=== PATIENT | male | born 1950 | race Caucasian/White ===

== ENCOUNTER 2024-05-02 10:27 | Outpatient (RCR) | payer MEDICARE, BC, SELFPAY ==
--- NOTE | 2024-05-02 12:09 | PT.OPEX ---
PT [facility] Outpatient Eval PT [facility] Outpatient Eval Start: 04/30/24 15:45 Freq: Status: Active Protocol: Document 05/02/24 10:32 MRS (Rec: 05/02/24 11:57 MRS Desktop) E-signed By Danica Benitez DPT Physical Therapy Outpatient Evaluation Insurance Information Recert Due Date 08/02/23 Insurance Name Medicare B Medical Diagnosis Unilateral osteoarthritis of L hip; awaiting L JELANI Treating Diagnosis L hip weakness and pain Referring MD Dr. Dc Armstrong Subjective Preferred Name Donny Langley Pt doing well and ready for surgery. Surgery is scheduled 05/18/24 but is on stand-by list for first available. Pain Comments 08/22 in L Hip, L groin, and left low back Date of Last Physician Visit 04/15/24 Date of Next Physician Visit 05/26/24 Date of Surgery (If applicable) 05/18/24 Current Work Status Retired Occupation Works as [employer] during holidays Precautions Treatment Precautions/Contraindications History of B TKA's and R shoulder surgery Therapy Limitations/Systems Review Not Limited Objective Range of Motion WNL for B UE's and R LE. L hip is WFL but limited compared to R Strength B UE's grossly 5/5; R LE 5/5; L hip flexion 4/5; L knee flex /ext: 4+/5; L DF= 4/5 Swelling none noted Balance & Gait Pt demonstrating antalgic gait pattern with L hip being source of pain mostly with SLS and initiating swing through Sensation/Reflexes Pt has history of neuropathy but able to sense light touch during testing. Assessment Assessment/Impression Pt is pleasant 73-year-old male who presents for pre-op evaluation for L JELANI. Surgery is scheduled for 05/18/24 but pt is on waitlist as he has had a significant increase in pain and would like to have surgery as soon as possible. Pt received outpatient PT treatment prior to decision to have surgery. Pt will be receiving OP PT at [facility] post op. Pt demonstrates impaired L hip strength and functional mobility with presence of pain . Pt would benefit from post- op PT treatment. Primary Functional Limitations L hip pain, L hip weakness, impaired functional mobility requiring use of AD. Plan of Care Rehabilitation Potential Good Physical Therapy Goals During this session: 1. Pt will be able to give verbal understanding of post op expectations and precautions. 2. Pt will be able to demonstrate post-op L JELANI exercises using HEP handout as a reference. Post Op Goals within 2-3 days 1. Pt will transfer independently. 2. Pt will amb 200 feet with ww independently for household and community amb. 3. Pt will ascend/descend 4 stairs independently to enter/ exit the home. 4. Pt will be independent in JELANI ex program to promote strength and mobility. Goals for safe return home. Treatment Plan/Direct Interventions Gait Training,Self-Care/Home Management,Therapeutic Activities,Therapeutic Exercises Frequency/Duration 1 times visit pre-op Patient Will Be Discharged From Therapy Completion of LTG(s),Skills Plateau,Independent w/HEP, Independently Progressing Evaluation Billing Untimed Code Treatment Minutes 30 PT Eval No Charge No Complexity Low Student Supervision Licensed PT Directed/Approved Treatment, Reviewed POC with Patient,Made Contact with Patient, Participated in Treatment Certification Information Initial Certification Date 05/02/24 Ending Certification Date 08/02/23 Provider Signature Required Yes Provider Signature Shows Agreement With POC & Medical Necessity Physician NPI Number Write NPI# Here Physician Comment/Change : Physician Signature & Date Requested Please Sign/Date Here
== END 2024-08-30 23:59 | disposition home or self-care (01) ==
PROVIDERS: Visit Provider Orthopaedic Surgery Sports Medicine
DX: M16.12 Unilateral primary osteoarthritis, left hip (principal); M25.552 Pain in left hip; R53.1 Weakness; Z51.89 Encounter for other specified aftercare
CPT/HCPCS: 97110; 97161; 97530

== ENCOUNTER 2024-05-18 05:50 | Day surgery (SDC) | payer MEDICARE, BC, SELFPAY ==
[2024-05-18] VITALS (30 sets, daily range): BP systolic 134–191; BP diastolic 59–102; PULSE 48–74; RESP 16–22; TEMP 36.3–37.4; O2SAT 94–100; BMI 35.9
--- OUTSIDE RECORDS SUMMARY | 2024-05-18 05:54 | XMS_ITS | Clinical Summary ---
Author Organization [employer] Address [place], [place] [address] Care Team Providers Care Yard Person Name Role Phone Nanci Singh Primary Care Provider Allergies No known active allergies Medications Medication Sig Dispensed Refills Start Date End Date Status lancets (Microlet Lancet) Test 3 times daily 300 Each 3 03/06/2021 Active Blood-Glucose Meter (Contour Next EZ Meter)Indications:Typ e 2 diabetes mellitus without complication, with long-term current use of insulin (HC) Dispense meter covered by pt ins. 1 Kit 01/01/2022 Active blood sugar diagnostic (Contour Next Test Strips) stripIndications:Type 2 diabetes mellitus without complication, with long-term current use of insulin (HC) Test 3 times daily. 300 Each 3 01/01/2022 Active losartan (COZAAR) 100 mg tabletIndications:Ess ential hypertension Take 1 Tablet (100 mg) by mouth once daily. 90 Tablet 3 02/04/2023 Active sildenafil citrate (VIAGRA) 100 mg tabletIndications:Ere ctile dysfunction, unspecified erectile dysfunction type Take one-half tablets (50 mg) by mouth once daily if needed for Erectile Dysfunction. Take 30min to 4 hours before sexual activity. Max 100mg/24hr. 20 Tablet 2 02/04/2023 Active amLODIPine (NORVASC) 10 mg tabletIndications:Ess ential hypertension Take 1 Tablet (10 mg) by mouth once daily. 90 Tablet 3 02/04/2023 Active ketoconazole 2% shampoo (NIZORAL) 2 % shampooIndications:Ti anita Apply thin layer to face, leo and eyebrows twice weekly. 120 mL 1 01/25/2024 Active atorvastatin (LIPITOR) 40 mg tabletIndications:Hyp ercholesterolemia Take 1 Tablet (40 mg) by mouth at bedtime. 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 This will not affect patient care or billing. This comment can be deleted. Colon polyp 11/19/2009 Overview (09/28/2012): Colonoscopy 11/2009 polyps repeat in 3 years Other and unspecified hyperlipidemia 09/08/2006 Gramajo's esophagus 09/08/2006 Overview (09/28/2012): EGD 09/2012 Gramajo's, repeat EGD in 3 years Unspecified essential hypertension 09/08/2006 Resolved Problems Problem Noted Date Diagnosed Date Resolved Date Anticoagulation monitoring, goal range 1.7-2.5 08/29/2013 04/15/2017 Unspecified sleep apnea 09/08/200609/14 Encounters Date Type Department Care Team Description 05/02/2024 9:00 AM SUPERVISOR ELECTROLYTIC TINNING Office Visit [facility] [address] [place] [address] Ally Valverde MD Preoperative Exam (05/18/24 left his replacement - [facility]. Dr Benjamin) 05/02/2024 Travel 04/28/2024 Travel 02/26/2024 Telephone [facility] [address] [facility] [place] [address] McLeran, Nanci Elsa, [place] Prior Authorization (evolocumab (Repatha SureClick) 140 mg/mL subcutaneous pen injector Approved No Dates Given) from Last 3 Months Immunizations Name Administration Dates Next Due Hepatitis A (Adult) 09/06/1997,01/18/1997 Hepatitis B (Adult) 01/18/1997,05/24/1996,1995 Influenza, IIV3 (Age 6-35 mos) 04/23/2011 Influenza, IIV3 (Age >=3 years) 04/23/20 11,05/02/2010,05/14/2007,2002 Pneumococcal Poly,23-Valent (Pneumovax) 08/27/2013 Td (Age >=7 Years) 04/11/1996 Tdap 12/19/2010 Family History Medical History Relation Name Comments Good Health Son Relation Name Status Comments Son Social History Tobacco Use Types Packs/Day Years Used Date Smoking Tobacco: Never Smokeless Tobacco: Never Tobacco Cessation:Counseling Given: No Alcohol Use Standard Drinks/Week Comments Yes 0 (1 standard drink = 0.6 oz pur e alcohol) once in a while PHQ-2 Answer Date Recorded PHQ-2 TOTAL SCORE 0 07/09/2020 Social Connections Answer Date Recorded Do you often feel lonely or isolated from those around you? 0 07/24/2023 Financial Resource Strain Answer Date R ecorded Difficulty of Paying Living Expenses 3 02/04/2023 Difficulty of Paying Living Expenses Not on file 02/04/2023 Food Insecurity Answer Date Recorded Do you worry your food will run out before you are able to buy more? 1 07/24/2023 Transportation Needs Answer Date Record ed Does lack of transportation keep you from medica l appointments? 1 07/24/2023 Does lack of transportation keep you from work, meetings or getting things that you need? 1 07/24/2023 Housing Stability Answer Date Recorded What is your housing situation today? 1 07/24/2023 Sex and Gender Information Value Date Recorded Sex Assigned at Not on file Gender Identity Not on file Sexual Orientation Not on file Obstetrics History Last Filed Vital Signs Vital Sign Reading Time Taken Comments Blood Pressure 145/77 05/02/2024 9:12 AM SUPERVISOR [employer] did not take BP medication today Pulse 50 05/02/2024 9:12 AM SUPERVISOR [employer]NING Temperature 36.4 C (97.6 F) 08/21/2023 12:15 PM SUPER[employer]NING Respiratory Rate 16 08/21/2023 12:1 5 PM [employer]PER[employer]OR [employer]NING Oxygen Saturation 98% 05/02/2024 9:1 2 AM SUPERVISOR [employer] TINNING Inhaled Oxygen Concentration - - Weight 95.3 kg (210 lb) 05/02/2024 9:12 AM SUPERVISOR [employer]NING Height 165.1 cm (5' 5) 08/21/2023 12:1 5 PM SUPER[employer]OR [employer]NING Body Mass Index 34.95 08/21/2023 12:15 PM SUPER[employer]OR [employer]NING Plan of Treatment Health Maintenance Due Date Last Done Comments Zoster (shingles) series for age 50+ (1 of 2) 2001 Colonoscopy through age 75 11/16/2012 11/16/2009 Pneumococcal series for age 65+ (2 of 2 - PCV) 08/27/2014 08/27/2013 Medicare Wellness for age 65+ 2016 Tetanus booster 12/19/2020 12/19/2010, 07/12/2010, 04/11/1996 Depression screening for age 12+ 07/09/2021 07/09/2020, 03/01/2018, 02/23/2017, Additional history exists BMI (ht and wt on same day) for age 18+ 09/23/2022 09/23/2021, 02/06/2021, 07/09/2020, Additional history exists COVID-19 vaccine series ( season) 2024 Influenza for age 65+ 02/14/2024 04/23/2011 , 05/02/2010, 05/14/2007, Additional history exists Fecal testing non-DNA (FIT,FOBT,iFOBT) for age 45-75 02/18/2024 02/17/2023 Lipids for age 45-75 05/02/2029 05/02/2024, 01/25/2024, 02/04/2023, Additional history exists Tdap Completed 12/19/2010 Hepatitis C screening for ag e 18-79 Completed 09/23/2021 Procedures Procedure Name Priority Date/Time Associated Diagnosis Comments LIPID PANEL Routine 05/02/2024 10:13 AM SUPERVISOR [employer]ING Hypercholesterolemi a HEMOGLOBIN Routine 05/02/2024 10:13 AM SUPERVISOR [employer]NING Pre-op exam POTASSIUM Routine 05/02/2024 10:13 AM SUPERVISOR [employer]NING Pre-op exam OCCULT BLOOD IFOBT STOOL Routine 02/17/2023 11:04 AM CDT Screening for colon cancer ANTI HCV Routine 09/23/2021 9:36 AM CDT Need for hepatitis C screening test from Last 3 Months or Most Recently Relevant to Health Maintenance Results * HEMOGLOBIN (05/02/2024 10:13 AM SUPERVISOR ELECTR[employer] TINNING) HEMOGLOBIN 14.9 13.2 - 17.1 g/dL [facility] Blood BLOOD SPECIMEN / Unknown 05/02/2024 10:13 AM SUPERVISOR [employer]NING 05/02/2024 10:14 AM SUPERVISOR [employer]NING Ally Valverde MD HEMATOLOGY Performing Organization Address City/[facility]/ZIP Co de Phone Number [employer] [facility] [address] [place] [address], [place] [phone] [facility] [address] [place] [address] * POTASSIUM (05/02/2024 10:13 AM SUPERVISOR ELECTROLYTIC TINNING) [facility] POTASSIUM 4.5 3.5 - 5.3 mmol/L [facility] Blood BLOOD SPECIMEN / Unknown 05/02/2024 10:13 AM SUPERVISOR ELECTROL[employer] TINNING 05/02/2024 10:14 AM SUPERVISOR ELECTR[employer] TINNING Ally Valverde MD CHEMISTRY [employer] [facility] [address] [place] [address], [place] [phone] [facility] [address] [place] [address] * (ABNORMAL) LIPID PANEL (05/02/2024 10:13 AM SUPERVISOR ELECTROLYTIC TINNING) CHOLESTEROL, TOTAL 297(H) <200 mg/dL [facility] HDL CHOLESTEROL 42 > OR = 40 mg/dL [employer] [facility] TRIGLYCERIDES 181(H) <150 mg/dL [employer] [facility] LDL-CHOLESTEROL 220(H) mg/dL (calc) [facility] Comment: LDL-C levels > or = 190 mg/dL may indicate familial hypercholesterolemia (FH). Clinical assessment and measurement of blood lipid levels should be considered for all first degree relatives of patients with an FH diagnosis. LDL Cholesterol (LDL-C) levels > or = 300 mg/dL may indicate homozygous familial hypercholesterolemia (HoFH). Untreated, these extremely high LDL-C levels can result in premature CV events and mortality. Patients should be identified early and provided appropriate interventions to reduce the cumulative LDL-C burden from . For questions about testing for familial hypercholesterolemia, please call [employer] Services at [email or web address].GENE.INFO. Eladio Ramos, et al. J National Lipid Association Recommendations for Patient-Centered Management of Dyslipidemia: Part 1 Journal of Clinical Lipidology 2015;9(2), 129-169. Maco Rodriguez et al. (2014). Homozygous familial hypercholesterolaemia: new insights and guidance for clinicians to improve detection and clinical management. Heart Journal, 35(32), 6415-3443. Reference range: <100 Desirable range <100 mg/dL for primary prevention; <70 mg/dL for patients with CHD or diabetic patients with > or = 2 CHD risk factors. LDL-C is now calculated using the Demarco-Johnson calculation, which is a validated novel method providing better accuracy than the Friedewald equation in the estimation of LDL-C. Demarco PARNELL et al. BONI. 2013;310(19): 3283-8208 (http://education.Ecolibrium/faq/TOC150) CHOL/HDLC RATIO 7.1(H) <5.0 (calc) [facility] NON HDL CHOLESTEROL 255(H) <130 mg/dL (calc) [facility] Comment: Non-HDL level > or = 220 is very high and may indicate genetic familial hypercholesterolemia (FH). Clinical assessment and measurement of blood lipid levels should be considered for all first-degree relatives of patients with an FH diagnosis. For patients with diabetes plus 1 major ASCVD risk factor, treating to a non-HDL-C goal of <100 mg/dL (LDL-C of <70 mg/dL) is considered a therapeutic option. Blood BLOOD SPECIMEN / Unknown 05/02/2024 10:13 AM SUPERVISOR ELECTROL[employer]IC TINNING 05/02/2024 10:14 AM SUPERVISOR ELECTROLY[employer] TINNING Ally Valverde MD CHEMISTRY Performing Organization Address City/[facility] Co de Phone Number [employer] [facility] [address] [place] [address], [facility] [address] [place] [address] * OCCULT BLOOD IFOBT STOOL (02/17/2023 11:04 AM CDT) STOOL BLOOD ,IFOBT Negative Negative 02/23/2023 12:20 PM CDT [facility] Stool STOOL SPECIMEN / Unknown Non-Blood / Unknown 02/17/2023 11:04 AM CDT 02/23/2023 11:05 AM CDT [facility] Performing Organization Address [facility] de Phone Number [facility] [address] [id number], [place] [phone] * ANTI HCV (09/23/2021 9:36 AM CDT) HEPATITIS C ANTIBODY Non-React yenni Non-React yenni 09/23/2021 4:59 PM CDT [facility] Comment:Antibodies to HCV no t detected; does not exclude the possibility of exposure to HCV. Blood BLOOD SPECIMEN / Unknown Venipuncture / Unknown 09/23/2021 9:36 AM CDT 09/23/2021 9:37 AM CDT Nanci [facility] Performing Organization Address City/[facility]/ZIP Co de Phone Number [facility] [address] [place] [address], [place] from Last 3 Months or Most Recently Relevant to Health Maintenance Advance Directives Documents on File Type Date Recorded Patient Engineering Inspector Expl anation Healthcare Directive 10/05/2005 A * Full Code (Latest Code Status on File) Date Activated Date Inactivated Comments 07/24/2023 5:06 PM 07/25/2023 12:22 PM Question Answer Comments Code Status Discussion: Other * Full Code Date Activated Date Inactivated Comments 06/19/2023 4:28 PM 06/20/2023 2:00 PM Question Answer Comments Code Status Discussion: Reviewed Preferences * Full Code Date Activated Date Inactivated Comments 06/19/2023 8:58 AM 06/19/2023 4:28 PM Question Answer Comments Code Status Discussion: Unable to Assess Preferences, Provider to review later Care Teams Yard Person Relationship Specialty Start Date End Date Nanci Singh PA [address] [facility] [place] [address] PCP - General Family Practice 12/25/16
--- OUTSIDE RECORDS SUMMARY | 2024-05-18 05:54 | XMS_ITS | Data Portability ---
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 Plan of Treatment Reminders Order Date Submit Date Provider Last Modified By Organization Details Last Modified Time Details Appointments None recorded. Lab PSA, total, serum or plasma 2023 [address] [facility], [address], [place], [address], 4 05:49:49 PSA, total, serum or plasma 2023 024 [facility], [address], [address], [place], [address], 4 14:00:08 PSA, total, serum or plasma 2023 024 [facility], [address], [address], [place], [address], 4 14:04:56 Referral pelvic floor therapy referral - Please call patient to schedule Pelvic Floor Physical Therapy. Thank you 2023 024 [email or web address] [facility], [address], [address], [place], [address], 10:35:30 Procedures None recorded. Surgeries None recorded. Imaging None recorded. Medication Orders sildenafil (pulmonary hypertensio n) 20 mg tablet 2023 024 [facility], [place], [place], [address] [place], [address], 11:52:41 Patient TargetsNo targets recorded. Patient Instructions Encounter Date Encounter Id Patient Instructions Last Modified By Organization Details Last Modified Time 07/09/2023 [id number] 73 year old male with prostate cancer s/p robot assisted radical prostatectomy, bilateral pelvic lymph node dissection on 06/19/[address] Santos. Had voiding trial on 06/29/23 and he is here for wound check. Pathology: 4+3=7, grade group 3 negative margins lymph nodes negative. pT3aN0 Doing very well overall. Incisions healing as expected. Post op urinary incontinence noted- continue kegel exercises. Expect this to continue to improve. Discussed using sildenafil for rehabilitation of ED after prostatectomy. Pt would like to proceed so will send sildenafil, 60-100 mg three times weekly to his preferred pharmacy. Follow up as scheduled for LUDMILA teaching, SEBASTIAN follow up and PSA/office visit in 3 months. Warning signs and symptoms reviewed with patient. His questions were answered. [email or web address] Not available 07/09/2023 14:32:14 08/18/2023 [id number] 73 y/o male presents for a SEBASTIAN evaluation Urinary incontinence - Steady improvement in urinary incontinence. Continue kegel exercises daily in attempt to gain further improvement in urine control. Educated on pelvic floor physical therapy if needed. ED - Educated on SEBASTIAN protocol such as consistent usage of PDE-5 inhibitors (Viagra or Cialis) and vacuum erection device (LUDMILA). He is not a candidate for erectile recovery due to non-nerve sparing procedure. Discontinue PDE-5 inhibitors. Educated on vacuum erection device (with constriction bands), penile self injections and penile implant. He will continue with vacuum erection device at this time. Hand out on penile injections provided. [email or web address] Not available 08/18/2023 12:25:02 10/13/2023 [id number] 73 year old male with prostate cancer s/p robot assisted radical prostatectomy, bilateral pelvic lymph node dissection on 06/19/23. - Continue Kegel's for ABA, Refer to PFPT - For ED, start PDE5i with LUDMILA, will trial - May be interested in Trimix and will update me - PSA 0.04 at [facility], recheck today - PSA in 3 months Follwo-up in 6 months with PSA [email or web address] Not available 10/13/2023 14:02:17 04/13/2024 [id number] 73 year old male with prostate cancer s/p robot assisted radical prostatectomy, bilateral pelvic lymph node dissection on 06/19/23. - PSA today, follow-up - PSA in 3 months and follow-up in person - Continue Kegel's, if persistent bothersome after 1 year could consider sling - I do not think his left hip pain is related to his prior drain needs for lymphocele. I reviewed his MRI results in [facility]. Given acute worsening of his pain at his hip joint, bringing him to tears in clinic I recommend they contact the Ortho physician again for further guidance to see if something can be done to help with this. He will update me [email or web address] Not available 04/13/2024 21:18:27 Reason for Referral Pelvic Floor Therapy Referra l for Male urinary stress incontinence Please call patient to schedule Pelvic Floor Physical Therapy. Thank you Referring Physician: Guille Santos, Urology, Encounter Date: 10/13/2023 Results Created Date Observation Date Name Description Value Unit Range Abnormal Flag Note LastModifiedBy Organization Detail LastModifiedTime 09/21/19 24 09/21/2023 PSA, total , serum or plasm a PSA 0.04 Not Available [facility] [address], [place], [address], 09/22/2023 05:10:48 10/13/19 24 10/13/2023 PSA, TOTAL PSA, total <0.10 NG/mL <4.0 This lab resul t is being provi ded to you and your provi mima at the same time in compl iance with the Centu ry Cures Act. Your provi mima may not have had time to revie w and make recom menda tions based on the resul t. Pleas e allow up to one week for provi mima revie w. Not Available [facility] [address] [facility] [address], [place], [address], 10/13/2023 14:00:08 04/13/20 24 04/13/2024 PSA, TOTAL PSA, total <0.10 NG/mL <4.0 This lab resul t is being provi ded to you and your provi mima at the same time in compl iance with the Centu ry Cures Act. Your provi mima may not have had time to revie w and make recom menda tions based on the resul t. Pleas e allow up to one week for provi mima revie w. Not Available [facility] [address] [facility] [address], [place], [address], 04/13/2024 14:04:56 06/05/20 23 06/04/2023 MRI, prost ate, w/wo contr ast No observ ation record ed. EDUARDO Colby MD [address] [facility] [address], [place], [address], 2023 17:46:44 07/22/19 24 07/22/2023 US, fadi x, sandra s, [facility] mity, compl ete No observ ation record ed. [email or web address] [facility] [address] [address] [facility] [address], [place], [address], 07/24/2023 13:27:44 07/22/19 24 07/22/2023 imagi ng/di agnos tic resul t No observ ation record ed. EDUARDO [facility] [address] [address] [facility] [address], [place], [address], 07/22/2023 16:57:30 08/21/19 24 07/24/2023 CT, abdom en + pelvi s, w/ contr ast No observ ation record ed. [email or web address] [facility] [address] [facility], [place], [address], 08/21/2023 12:48:12 Result Notes None recorded. Problems Name Problem SNOMED Code Status Onset Date Resolution Date Notes Provider Name and Address Organization Details Recorded Time Hypertensiv e disorder 04464183 Active Serafin sesay, [facility] 3 15:41:57 Hyperlipide cassie 19153369 Active Serafin sesay, [facility] 3 15:42:07 Diabetes mellitus 73368292 Active Serafin sesay, [facility] 3 15:42:17 Vitamin D deficiency 31282524 Active Serafin sesay, [facility] 3 15:42:32 Sensorineur al hearing loss of bilateral ears 409156986 Active Serafin sesay, [facility] 3 15:42:45 Gramajo's esophagus 767105493 Active Serafin sesay, [facility] 3 15:43:01 Polyp of colon 80300185 Active Serafin Sung [facility] 3 15:43:09 Osteoarthri tis of glenohumera l joint 889060424 [facility] 15:43:29 Malignant tumor of prostate 558043330 Active 2022 GUILLE SANTOS MD [address] [place] [address], [phone], [facility] 3 16:34:04 Spasm of urinary bladder 714981125 Active 2023 GUILLE SANTOS MD [address] [place], [place] [address]IT [address] [place] [address], [phone], [facility] 4 15:18:09 Swelling of lower leg 517556918 Active 2023 GUILLE SANTOS MD [address] [place], [place] [address]IT [address] [place] [address], [address], [facility] 4 15:47:38 Edema of lower extremity 717361343 Active 2023 GUILLE SANTOS MD [address] [place] [address],[address], [place], [address], [facility] 4 18:47:29 Male urinary stress incontinenc e 228722055 Active 2023 GUILLE SANTOS MD [address] [place] [address],[address], [place], [address], [facility] 4 12:29:05 Erectile dysfunction following radical prostatecto 6898895804419 01 Active 2023 GUILLE SANTOS MD [address] [place] [address],[address], [place], [address], [facility] 4 12:38:08 Problem Notes None recorded. Procedures Surgical History Date Name Laterality Status Provider Name and Address Organization Details Recorded Time 04/13 Blood Draw/RECEPTION/PSA RESULTS completed Inez Neff [facility] 4 12:22:48 10/12 COMPLEX VISIT completed GUILLE SANTOS MD [address] [place] [address],[address], [place], [address] , [facility] 4 14:02:22 10/12 Blood Draw/RECEPTION/PSA RESULTS completed Inez Neff [facility] 4 12:44:49 06/29 Catheter Removal completed Alesia Moon [facility] 4 15:45:04 04/30 DT Prostate Biopsy Procedure completed MAURI CORONEL MD [address] [place] [address],[address], [place], [address] , [facility] 3 11:23:37 04/30 Rocephin/Ceftriaxone completed Inez Neff [facility] 3 10:18:31 09/24 esophagogastroduodenoscopy completed Serafin Sung [facility] 3 15:48:46 11/16 Colonoscopy completed Serafin Sung [facility] 3 15:47:50 11/16 Diagnostic colonoscopy completed Amparo Salguero [facility] 4 15:57:04 reconstruction of an terior cruciate ligament of knee joint completed Serafin Sung [facility] 3 15:48:19 Removal of prostate completed Not Available Health Note 4 13:26:40 Imaging Results Imaging Date Name Status LastModified by [facility] Details LastModified Time 06/04/2023 MRI, prostate, w/wo contrast completed EDUARDO Colby MD [address] [facility] [address], [place], [address], 2023 17:46:44 07/22/2023 US, duplex, venous, lower extremity, complete completed [email or web address] [facility] [address] [address] [facility] [address], [place], [address], 07/24/2023 13:27:44 07/22/2023 imaging/diagn ostic result completed [email or web address] [address] [address] [facility] [address], [place], [address], 07/22/2023 16:57:30 07/24/2023 CT, abdomen + pelvis, w/ contrast completed [email or web address] [facility] [address] [facility] [address] [place] [address], [place], [address], 08/21/2023 12:48:12 Procedure Notes None recorded. Medical Equipment None Reported. Allergies No known drug allergies Medications Name Sig Start Date Stop Date Status Note LastModified by Organization Details LastModified Time amoxicill in 500 mg capsule 05/19 completed Not Available Not Available Not Available Ascriptin 325 mg tablet Take by oral route. active Not Available Not Available No t Available metformin 500 mg tablet Take 1 tablet twice a day by oral route. 05/19 completed Not Available Not Available Not Available ketoconaz ole 2 % shampoo APPLY A THIN LAYER TO THE FACE, ALY AND EYEBROWS TWICE WEEKLY active Not Available Not Available No t Available hydrochlo rothiazid e 50 mg tablet Take 1 tablet every day by oral route. 04/13 completed HN: Patient reports no longer taking Not Available Not Available Not Available blood sugar diagnosti c strips 04/13 completed HN: Patient reports no longer taking Not Available Not Available Not Available aspirin 81 mg tablet,de layed release Take 1 tablet every day by oral route. 04/13 completed HN: Patient reports no longer taking Not Available Not Available Not Available sildenafi l 100 mg tablet Take 1 tablet every day by oral route. 07/09 completed Not Available Not Available Not Available ceftriaxo ne 1 gram solution for injection Take 1 g by injectio n route. 05/19 completed Not Available Not Available Not Available amlodipin e 10 mg tablet Take 1 tablet every day by oral route. active Not Available Not Available No t Available cephalexi n 500 mg capsule TAKE ONE CAPSULE BY MOUTH EVERY 8 HOURS FOR 3 DAYS 07/09 completed Not Available Not Available Not Available pantopraz ole 40 mg tablet,de layed release Take 1 tablet every day by oral route. active Not Available Not Available No t Available levofloxa berta 500 mg tablet Take 1 tablet every 24 hours by oral route. 05/19 completed Not Available Not Available Not Available oxybutyni n chloride 5 mg tablet Take 1 tablet every 8 hours by oral route as needed, for bladder spasms. 07/09 completed Not Available Not Available Not Available losartan 100 mg tablet Take 1 tablet every day by oral route. active Not Available Not Available No t Available metformin ER 500 mg tablet,ex tended release 24 hr 04/13 completed HN: Patient reports no longer taking Not Available Not Available Not Available oxycodone 5 mg tablet 07/09 completed Not Available Not Available Not Available rosuvasta tin 5 mg tablet Take 1 tablet every day by oral route. 04/13 completed HN: Patient reports no longer taking Not Available Not Available Not Available sildenafi l (pulmonar y hypertens ion) 20 mg tablet TAKE 3 TO 5 TABLETS BY MOUTH ON MON THU AND 04/13 completed HN: Patient reports no longer taking Not Available Not Available Not Available Dailyvite active Not Available Not Brandy ilable Not Available Blood Glucose Meter active Not Available Not Available Not Available magnesium 200 mg (as magnesium oxide) tablet Take by oral route. 08/17 completed HN: Patient reports no longer taking HN: Patient reports no longer taking Not Available Not Available Not Available Vitals Date Recorded Body height Provider Name an d Address Organization Details Last Updated DateTime 06/29/2023 165.1 cm Alesia Moon [facility] 06/29/2023 15:43:10 Date Recorded Body height Body mass index (BMI) Body weight Provider Name and Address Organization Details Last Updated DateTime 07/09/2023 165.1 cm 37.3 kg/m2 087229.69 g Honey Simmons [facility] 07/09/2023 11:08:05 Date Recorded Body height Body mass index (BMI) Body weight Provider Name and Address Organization Details Last Updated DateTime 08/18/2023 165.1 cm 37.3 kg/m2 941222.69 g Kenny Early [facility] 08/18/2023 11:59:22 Date Recorded Body height Body mass index (BMI) Body weight Provider Name and Address Organization Details Last Updated DateTime 10/13/2023 165.1 cm 37.3 kg/m2 090603.69 g Ko Bolden [facility] 10/13/2023 12:23:44 Date Recorded Body height Body mass index (BMI) Body weight Provider Name and Address Organization Details Last Updated DateTime 04/13/2024 165.1 cm 37.3 kg/m2 404926.69 g Amparo Salguero [facility] 04/13/2024 11:52:14 Social History Question Answer Notes LastModified by Organizat ion Details LastModified Time Tobacco Smoking Status Never Smoker Not Available Health Note 08/03/2023 13:26:40 What Is Your Level Of Alcohol Consumption? None [email or web address] Information not available 08/18/2023 What Is Your Level Of Caffeine Consumption? Moderate [email or web address] Information not available 08/03/2023 How Much Tobacco Do You Chew? None [email or web address] Information not available 08/03/2023 Do You Or Have You Ever Used E-cigarettes Or Vape? Never Used Electronic Cigarettes [email or web address] Information not available 08/03/2023 What Was The Date Of Your Most Recent Tobacco Screening? 04/13/2024 [email or web address] Information not available 04/13/2024 Have You Ever Been Counseled For Unhealthy Alcohol Use? No [email or web address] Information not available 10/13/2023 What Is Your Relationship Status? [email or web address] Information not available 08/03/2023 Are You Sexually Active? Yes [email or web address] Information not available 08/03/2023 Do You Or Have You Ever Used Smokeless Tobacco? Never Used Smokeless Tobacco [email or web address] Information not available 08/03/2023 Do You Use Any Illicit Or Recreational Drugs? Yes [email or web address] Information not available 08/03/2023 Has Tobacco Cessation Counseling Been Provided? No Information not available 04/07/2023 Do You Or Have You Ever Used Any Other Forms Of Tobacco Or Nicotine? No Information not available 04/07/2023 How Many Days In The Past Year Have You Consumed 5 Or More Drinks? 1 [email or web address] Information no t available 08/03/2023 Sex: Unknown Functional Status None recorded. Mental Status None recorded. Family History Nothing Reported. Medical History Condition Response Diabetes Y Sexually Transmitted Infection N Other N Bleeding Disorder N High Blood Pressure Y Kidney Stones N Cancer N Lung Disease N Depression N High Cholesterol Y GERD/Acid Reflux Y Heart Disease N Immunizations Vaccine Type Date Status Provider Name and Address Organization Details Recorded Time pneumococcal polysaccharide PPV23 08/27/2013 madison sesay [facility] 05/19/2023 16:03:16 Tdap 12/19/2010 madison sesay [facility] 05/19/2023 16:03:16 Influenza, split virus, trivalent, preservative 05/02/2010 madison sesay [facility] 05/19/2023 16:03:16 Influenza, split virus, trivalent, preservative 05/04/2003 madison sesay [facility] 05/19/2023 16:03:16 Influenza, split virus, trivalent, PF 04/23/2011 madison sesay [facility] 05/19/2023 16:03:16 Past Encounters Encounter ID Performer Location Encounter Start Date Encounter Closed Date Diagnosis/Indication Diagnosis SNOMED-CT Code Diagnosis ICD10 Code [id number] MAURI CORONEL MD [facility] [address] [place] [address] [place] [phone] 04/07/2023 11:33:44 04/07/2023 13:31:22 Prostate specific antigen above reference range 343662138 R97.20 Induration penis plastica 3829594 N48.6 [id number] Inez Tawanda [facility] [address] [place] [address] [place] [phone] 04/30/2023 10:15:37 04/30/2023 10:20:57 Prostate specific antigen above reference range 955634612 R97.20 [id number] MD [facility] [address] [place] [phone] 04/30/2023 10:17:49 04/30/2023 11:36:53 Prostate specific antigen above reference range 180276737 R97.20 [id number] [facility] [address] 05/19/2023 15:41:04 05/21/2023 14:41:11 Malignant tumor of prostate 466264465 C61 [id number] Alesia Moon [facility] [address] [place] [address] 06/29/2023 13:16:20 06/29/2023 15:52:29 Malignant tumor of prostate 034215184 C61 [id number] DANIEL THOMPSON PA-C [facility] [address] [place] [phone] 07/09/2023 10:42:32 07/09/2023 14:38:48 Malignant tumor of prostate 253656746 C61 [id number] DINORAH MITCHELL [facility] [address] [place] [phone] 08/18/2023 10:58:00 08/18/2023 12:49:26 Erectile dysfunction following radical prostatectomy 3122199155 93430 N52.31 Male urina ry stress incontinence 985323408 N39.3 Malignant tumor of prostate 430397144 C61 [id number] MD Mike [facility] [address] [facility],[address] [place] [address] 10/13/2023 12:04:58 10/13/2023 14:09:19 Male urinary stress incontinence 737551524 N39.3 Malignant tumor of prostate 960357136 C61 Erectile d ysfunction following radical prostatectomy 6840683751 73496 N52.31 [id number] MD Skyler [facility] [address] [facility] [place] [address] 04/13/2024 11:48:05 04/14/2024 08:51:00 Malignant tumor of prostate 391571254 C61 Male urina ry stress incontinence 649237378 N39.3 Health Concerns Section Related Observation LastModified by Organization Detai ls LastModified Time None Recorded Concern Status LastModified by Organization Details LastModified Time None Recorded Advance Directives Directive None Recorded Payers Encounter Date Sequence Insurance Name Policy Number Policy Sampson Covered Member ID Sampson Member ID Guarantor Name 06/29/2023 1 [place] [id number] Donny Beasley [id number] Donny Beasley 07/09/2023 1 [place] [id number] Donny Beasley [id number] Donny Beasley 08/18/2023 1 [place] [id number] Donny Beasley [id number] Donny Beasley 10/13/2023 1 [place] [id number] Donny Beasley [id number] Donny Baesley 04/13/2024 1 [place] [id number] Donny Beasley [id number] Donny Beasley Notes Date Note Type Note Provider Name and Address Organization Details Recorded Time text/html 73 year old male with prostate cancer s/p robot assisted radical prostatectomy, bilateral pelvic lymph node dissection on 06/19/[address] Santos. Had voiding trial on 06/29/23 and he is here for wound check. Pt reports feeling well overall.Denies fever, chills, nausea, vomiting.No dysuria, minimal intermittent hematuria.Has incontinence and using roughly 10 pads daily. Reports strong stream.Is doing kegel exercises. Pathology:4+3=7, grade group 3negative marginslymph nodes negative.pT3aN0 DANIEL THOMPSON PA-C [address] [facility],[address], [place], [address], [facility] 07/09/2023 14:32:27 4 text/html Erectile DysfunctionReported bypatient.Notes:Patient presents for a SEBASTIAN evaluation. He was able to achieve an ehs of 3-3.5 with adequate maintenance prior to surgery (no need for PDE-5 inhibitors).Currently, he has not tried stimulation since surgery. He is taking Sildenafil 3x a week. No side effects. He is using the vacuum erection device periodically. Full erection in the device.IncontinenceRepor denita bypatient.Notes:Patient presents for a urinary incontinence evaluation s/p prostatectomy. No issues with urinary incontinence prior to surgery.Currently, he reports urinary incontinence with standing up, bending at the waist and random actions. He is wearing 2-3 pads daily for incontinence. He is completing kegel exercises daily. RRP completed on 06/19/[address] Mazariegos. Non-nerve sparing procedure. DINORAH MITCHELL [address] [place] [address],[address], [place], [address], [facility] 08/18/2023 12:29:55 4 text/html 73 year old male with prostate cancer s/p robot assisted radical prostatectomy, bilateral pelvic lymph node dissection on 06/19/23. Pathology:4+3=7, grade group 3negative marginslymph nodes negative.pT3aN0 Post-op had LLE swelling from lymphocele requiring drain. Now out. Doing well. No swelling. He is using 3-4 ppd. These are soaked when changed. He is using the LUDMILA which does work some but loses his erection. Not combining PDE5i with LUDMILA. GUILLE SANTOS MD [address] [place] [address],[address], [place], [address], [facility] 10/13/2023 14:02:55 4 text/html 73 year old male with prostate cancer s/p robot assisted radical prostatectomy, bilateral pelvic lymph node dissection on 06/19/23.Pathology:4+3=7, grade group 3negative marginslymph nodes negative.[id number] had LLE swelling from lymphocele requiring drain. Now out. Doing well. No swelling. 04/13/24: PSA 12/2023 was 0.02. Has some ongoing ABA, however using 1 pad per day that is not soaked. Worse with increased activity. More importantly he is having severe right left hip joint pain that is radiating down his leg. This has been painful and limiting. Has seen Ortho and had imaging but pain has significantly worsened. GUILLE SANTOS MD [address] [facility],[address], [place], [address], [facility] 04/13/2024 21:18:39
--- OUTSIDE RECORDS SUMMARY | 2024-05-18 05:55 | XMS_ITS | Continuity of Care Document ---
Author Organization [facility], [facility] Address [address] [place] [address] Care Team Providers Care Conference Concierge Name Role Phone BRANDEE JONES Primary Care Provider [phone] FRANCO PERRYOPOLIS Primary Care Provider BRANDEE JONES Referring Provider Assessment No assessment recorded. Plan of Treatment Reminders Order Date Submit Date Provider Last Modified By Organization Details Last Modified Time Details Appointments None recorded . Lab PSA, total, serum or plasma 024 04/13/20 [facility], [address] [facility], [place], [address], 14:04:56 Referral None recorded . Procedures None recorded . Surgeries None recorded . Imaging None recorded . Medication Orders None recorded . Patient TargetsNo targets recorded. Patient Instructions Encounter Date Encounter Id Patient Instructions Last Modified By Organization Details Last Modified Time 04/13/2024 [id number] 73 year old male with prostate cancer [...] help with this. He will update me [email or web address] Not available 04/13/2024 21:18:27 Reason for Referral None Reported. Problems Name Problem SNOMED Code Status Onset Date Resolution Date Notes Provider Name and Address Organization Details Recorded Time Hypertensiv e disorder 21598480 Active Serafin Sung [facility], [facility] 3 15:41:57 Hyperlipide cassie 50173147 Active Serafin sesay, [facility] 3 15:42:07 Diabetes mellitus 75341691 Active Serafin Sung [facility], [facility] 3 15:42:17 Vitamin D deficiency 53823851 Active Serafin sesay, [facility] 3 15:42:32 Sensorineur al hearing loss of bilateral ears 763971607 Active Serafin Sung [facility], [facility] 3 15:42:45 Gramajo's esophagus 144091627 Active Serafin sesay, [facility] 3 15:43:01 Polyp of colon 84502670 Active [facility] 3 15:43:09 Osteoarthri tis of glenohumera l joint 689287414 Active Ser[facility]in Sung [facility] 3 15:43:29 Malignant tumor of prostate 333929867 Active 2022 LORA SANTOS MD [address] [place], [place] [address] [place] [address], [phone], [facility] 3 16:34:04 Spasm of urinary bladder 702351152 Active 2023 LORA SANTOS MD [address] [place], [place] [address] [place] [address], [phone], [facility] 4 15:18:09 Swelling of lower leg 042171808 Active 2023 LORA SANTOS MD [address] [place], [place] [address] [place] [address], [phone], [facility] 4 15:47:38 Edema of lower extremity 103434448 Active 2023 LORA SANTOS MD [address] [place] [address],[address], [place], [address], [facility] 4 18:47:29 Male urinary stress incontinenc e 749497389 Active 2023 LORA SANTOS MD [address] [place] [address],[address], [place], [address], [facility] 4 12:29:05 Erectile dysfunction following radical prostatecto 5734434386564 01 Active 2023 LORA SANTOS MD [address] [place] [address],[address] [place], [place], [address], [facility] 4 12:38:08 Problem Notes None recorded. Procedures Surgical History Date Name Laterality Status Provider Name and Address Organization Details Recorded Time 04/13 Blood Draw/JEWEL FLAT SURFACER/PSA RESULTS completed Inez Neff [facility] 4 12:22:48 10/12 COMPLEX VISIT completed LORA SANTOS MD [address] [place] [address],[address], [place], [address] , [facility] 4 14:02:22 10/12 Blood Draw/JEWEL FLAT SURFACER/PSA RESULTS completed Inez Neff [facility] 4 12:44:49 06/29 Catheter Removal completed Alesia Moon [facility] 4 15:45:04 04/30 DT Prostate Biopsy Procedure completed MAURI CORONEL MD [address] [place] [address],[address], [place], [address] , [facility] 3 11:23:37 04/30 Rocephin/Ceftriaxone completed Inez Neff [facility] 3 10:18:31 09/24 esophagogastroduodenoscopy completed Serafin Sung [facility] 3 15:48:46 11/16 Colonoscopy completed Serafin Sung [facility] 3 15:47:50 11/16 Diagnostic colonoscopy completed Amparo Salguero [facility] 4 15:57:04 reconstruction of an terior cruciate ligament of knee joint completed Serafin Sung [facility] 3 15:48:19 Removal of prostate completed Not Available Health Note 4 13:26:40 Imaging Results None recorded. Procedure Notes None recorded. Medical Equipment None [...] tablet every 24 hours by oral route. 12/05 /2023 completed Not Available Not Available Not Available [...] 3 TO 5 TABLETS BY MOUTH ON Thu AND 04/13 completed HN: Patient reports no [...] Not Available Vitals Date Recorded Body height Body mass index (BMI) Body weight Provider Name and Address Organization Details Last Updated DateTime 04/13/2024 165.1 cm 37.3 kg/m2 647148.69 g Amparo Salguero [place] [facility] 04/13/2024 11:52:14 Social History Question Answer [...] Been Counseled For Unhealthy Alcohol Use? No [email or web address] Information not available 10/13/2023 What Is Your [...] History Nothing Reported. Medical History Condition Response Other N High Blood Pressure Y Kidney Stones N Depression N Lung Disease N GERD/Acid Reflux Y Diabetes Y Sexually Transmitted Infection N Bleeding Disorder N Cancer N High Cholesterol Y Heart Disease N Immunizations Vaccine Type Date Status Provider Name and Address Organization Details Recorded Time pneumococcal polysaccharide PPV23 08/27/[address] [facility] 05/19/2023 16:03:16 Tdap 12/19/[address] [facility] 05/19/2023 16:03:16 Influenza, split virus, trivalent, preservative 05/02/[address] [facility] 05/19/2023 16:03:16 Influenza, split virus, trivalent, preservative 05/04/[address] [facility] 05/19/2023 16:03:16 Influenza, split virus, trivalent, PF 04/23/[address] [facility] 05/19/2023 16:03:16 Past Encounters Encounter ID Performer Location Encounter Start Date Encounter Closed Date Diagnosis/Indication Diagnosis SNOMED-CT Code Diagnosis ICD10 Code [id number] MD Skyler CL[facility] [address] [facility] [place] [address] 04/13/2024 11:48:05 04/14/2024 08:51:00 Malignant tumor of prostate 760066819 C61 Male urina ry stress incontinence 824827449 N39.3 Health Concerns Section Related Observation LastModified by Organization Detai ls LastModified Time None Recorded Concern Status LastModified by Organization Details LastModified Time None Recorded Payers Encounter Date Sequence Insurance Name Policy Number Policy Sampson Covered Member ID Sampson Member ID Guarantor Name 04/13/2024 1 [place]ICARE COST [id number] Donny Beasley [id number] Donny Beasley Notes Date Note Type Note Provider Name and Address Organization Details Recorded Time 04/13/2024 text/html 73 year old male with prostate cancer s/p robot assisted radical prostatectomy, bilateral pelvic lymph node dissection on 06/19/23.Pathology:4+ 3=7, grade group 3negative marginslymph nodes negative.[id number] -op had LLE swelling from lymphocele requiring drain. [...] had imaging but pain has significantly worsened. LORA SANTOS MD [address] [facility],[address], [place], [address], [facility] 04/13/2024 21:18:39
[2024-05-18] MEDS: ACETAMINOPHEN 500 MG TABLET 1000 MG PO ×2 (06:30→21:11)
[2024-05-18] MEDS: OXYCODONE (CR) 10 MG TAB.ER.12H PO (06:30)
[2024-05-18] MEDS: SODIUM CHLORIDE 0.9 % (FLUSH) 10 ML SYRINGE IVF (06:53)
[2024-05-18] MEDS: LACTATED RINGERS 1000 ML 1,000 ML 100 ML IV (07:10)
[2024-05-18] MEDS: fentaNYL 100 MCG/2 ML inj IVP (07:15)
[2024-05-18] MEDS: MIDAZOLAM HCL 1 MG/ML inj IVP (07:15)
--- NOTE | 2024-05-18 07:15 | W.PM.H&PU ---
History & Physical Update History & Physical Update H&P Reviewed and patient assessed: No changes noted
--- NOTE | 2024-05-18 07:21 | SUR.PREOP ---
TIME?OUT:?left hip 07 PT/RN/MDA?VERIFICATION?OF?SURGICAL?SITE,?PROCEDURE,?AND?CONSENT OBTAINED?PRIOR?TO?INVASIVE?PROCEDURE.
--- NOTE | 2024-05-18 07:30 | CRLHL7_ITS ---
For Patients: As a result of the Cures Act, medical imaging exams and procedure reports are released immediately into your electronic medical record. You may view this report before your referring provider. If you have questions, please contact your health care provider. INDICATION: Total hip arthroplasty on the left TECHNIQUE: Intraoperative fluoroscopic spot film left hip. FINDINGS: Total hip arthroplasty on the left. Dictated by Maico Mai MD @ 05/19/2024 9:38:29 AM (Electronically Signed)
--- NOTE | 2024-05-18 07:30 | W.ANESCHARGE ---
Anesthesia Charges Start Date/Time Anesthesia Start Date: 05/18/24 Anesthesia Start Time: 08:06 Stop Date/Time Anesthesia Stop Date: 05/18/24 Anesthesia Stop Time: 10:43 Summary Extremes of Age - Over 70 or under 1: MDA
--- NOTE | 2024-05-18 07:30 | W.PM.NB ---
Nerve Block Nerve Block Time Seen by Provider: 07:28 Date Seen: 05/18/24 Type of block requested by surgeon for post-operative analgesia: JORDAN/LFCN Side: left Time out performed: Yes Verification of patient name: Yes Verification of date of : Yes Site marking: site marked Name of person performing procedure: Bk Continuous monitoring Was continuous monitoring of O2 sat, B/P, monitor car operator, recorded every 15 minutes?: Yes Procedure Checklist: sterile prep, needles and gloves Ultrasound guided. Images saved: Yes Medications given in 5ml increments after negative aspiration: Ropivicaine %: 0.5 mL: 30 Needle gauge: 20 Precedex (mcg): 25 Patient tolerated procedure well: Yes Additional comments: Needle noted below psoas tendon needle noted adjacent to LFCN Block Charges Block Charge (with Pro Fee): Other Periph Nerve Block Use of Ultrasound Machine for Block: Yes- US Guidance/pain block
[2024-05-18] MEDS: CEFAZOLIN 2 GM in 0.9 % SODIUM CHLORIDE Mini-bag 100 ML IVPB ×2 (08:19→16:52)
[2024-05-18] MEDS: TRANEXAMIC ACID 100 MG/ML INJ 1000 MG IV (08:19)
[2024-05-18] MEDS: hydrOXYzine pamoate 25 MG CAPSULE PO (09:29)
--- NOTE | 2024-05-18 09:29 | CRLHL7_ITS ---
For Patients: As a result of the Century Cures Act, medical imaging exams and procedure reports are released immediately into your electronic medical record. You may view this report before your referring provider. If you have questions, please contact your health care provider. INDICATION: Post JELANI TECHNIQUE: Portable AP pelvis and lateral hip. COMPARISON: Intraoperative study at 10:59 FINDINGS: Bones: The left JELANI appears well seated and aligned without evidence for complications. Adjacent postoperative soft tissue changes. Negative postop left JELANI. Dictated by Reagan Mercado MD @ 05/19/2024 12:03:08 PM (Electronically Signed)
--- NOTE | 2024-05-18 09:56 | PM.ORPRC ---
Procedure Note Date of procedure: 05/18/24 Procedure: PREOPERATIVE DIAGNOSIS: 1. Left hip osteoarthritis, severe, primary POSTOPERATIVE DIAGNOSIS: 1. Left hip osteoarthritis, severe, primary PROCEDURE: 1. Left total hip arthroplasty-anterior approach 2. 31398 - intraoperative fluoroscopy up to 1 hour. SURGEON: Dc Armstrong MD. GATHERING WORKER: Aden Mai PA-C; Tomasa Corrigan PA-C - Of note, a skilled assistant branch manager was critical for this case to aid in patient positioning, tissue retraction, limb manipulation/positioning, dislocation/relocation, patient safety, and closure. ANESTHESIA: General endotracheal anesthetic EBL: 500 mL SPECIMEN: Left femoral head-pace and has history of prostate cancer IMPLANTS: DePuy J&J uncemented total hip [place] cup size 50, hole eliminator, +4 neutral liner Actis stem, high offset, size for +1 mm ceramic 32mm head. COMPLICATIONS: None evident INDICATIONS: The patient is a pleasant 73-year-old male who has experienced severe left hip pain and difficulty bearing weight. Workup included x-rays which revealed severe osteoarthrosis in the hip. Given the deformity, the dysfunction, and the pain, as well as the failure of nonoperative management, recommendation was made for surgery. FINDINGS: Full-thickness chondral loss diffusely throughout the femoral head and acetabulum. Also large osteophytes on the femoral head/neck junction. The femoral head otherwise had normal architecture. We did send the femoral head for specimen/permanent pathology given his history of prostate cancer, but no atypical features of the bone appreciated. DESCRIPTION OF PROCEDURE: Following a thorough discussion of risks, benefits, and alternatives consent was obtained and the left hip was marked. The patient was brought to the operating room and placed supine on the operating table. Induction of anesthesia was undertaken. 2 g IV Ancef and 1 g tranexamic acid was administered within 1 hr of incision preoperatively. Proper time-out was performed identifying proper patient, site, procedure. The operative extremity was prepped and draped in the appropriate sterile fashion using ChloraPrep after the patient was positioned on the [employer] table with head in neutral alignment and all bony prominences well padded. C-arm fluoroscopic imaging was utilized to confirm proper pelvis rotation and position, and to get true AP films of both the contralateral left, and the affected left hip. This is for comparison. A longitudinal incision was made starting approximately 1 cm distal to the ASIS, and 3-4 cm lateral. The incision was extended distally aiming toward the lateral border the patella. Sharp incision through skin and bovie cautery through the subcutaneous tissue allowed identification of the TFL fascia. This was sharply divided, and the fascia bluntly released from the muscle fibers as we dissected medial. Upon coming to the medial border, we were able to retract the TFL laterally, and penetrated the deeper fascia and identify the crossing circumflex vessels. These were ligated/cauterized. The rectus was elevated from the capsule, and retractors placed laterally and medially along the femoral neck to help with visualization of the capsule. We then performed an inverted T capsulotomy. The capsule was tagged for later repair. Retractors were placed inside the capsule. The femoral neck was visualized after releasing medially down to the lesser trochanter, along the saddle laterally, and up onto the acetabulum. The femoral neck cut was made in line with our preoperative templating. The head was removed in a single piece, and sized. We turned our attention to acetabular preparation. Initially, the labrum was resected from around the perimeter, the pulvinar was excised, allowing us to visualize the false wall. We started the reaming with a 43 mm reamer. This was medialized down to the true wall. We then enlarged our reamers sequentially up to one size less than the selected cup size. We trialed at the same size and found it to have an excellent fit. The selected cup was then opened, inserted, and impacted in line with the goal of 40-45? of abduction, and 20-25? of anteversion. This was confirmed on C-arm fluoroscopic imaging to be in the appropriate/goal position. Once the cup was placed we placed a hole eliminator and a liner consistent with preop planning. Attention was turned to the femoral preparation. The limb was extended, externally rotated, and adducted. The posteromedial capsule was released, as retractors were placed allowing excellent access to the proximal femur. Initially a box strapper was followed by canal finder followed by various broaches. We broached sequentially up to size noted above, found it to have excellent rotational control, and trialing various heads and necks, revealed that appropriate neck offset, and the above noted head size provided the greatest stability, and yazidism of length, and offset. C-arm fluoroscopic imaging confirmed position of the stem, as well as leg lengths, which were compared with the pre procedure all fluoroscopic images. Trial implants were removed, the real femoral stem inserted, as was the ceramic head. After reducing, the leg was placed through range of motion and stability was confirmed anterior, posterior, and lateral. A 3 min Betadine soak was then performed, and thorough irrigation with normal saline followed. Closure of the capsule was performed with #1 PDS. Bleeding was confirmed to be controlled at this stage, and the TFL fascia was closed with #0 strata fix. Subcutaneous, and subcuticular closure was performed with 2-0 Vicryl and 4-0 Monocryl, respectively. Dressings were applied, and the patient was awoken from anesthesia and transferred the PACU in stable condition. A skilled assistant branch manager was critical for this case to aid in patient positioning, tissue retraction, proximal femur exposure, limb manipulation/positioning, dislocation/relocation, patient safety, and closure. PLAN: 1. Weight bear as tolerated operative extremity. 2. 23 hr perioperative antibiotics. 3. Ice. 4. PT/OT consults for ambulation assistance/mobility education. 5. Social work consult for discharge planning. 6. DVT prophylaxis with at SCDs and Xarelto x5 days followed by aspirin for a total of 1 month..
--- NOTE | 2024-05-18 10:46 | W.ANESCHARGE ---
Anesthesia Charges Start Date/Time Anesthesia Start Date: 05/18/24 Anesthesia Start Time: 08:06 Stop Date/Time Anesthesia Stop Date: 05/18/24 Anesthesia Stop Time: 10:43 Summary Extremes of Age - Over 70 or under 1: BARREL TESTER
[2024-05-18] MEDS: MEPERIDINE 25 MG/ML INJ 12.5 MG IVP (10:51)
[2024-05-18] MEDS: fentaNYL 100 MCG/2 ML inj 50 MCG IVP ×2 (10:58→11:15)
[2024-05-18] MEDS: HYDROmorphone 0.5 mg/0.5 ml inj IVP ×2 (11:07→11:29)
--- NOTE | 2024-05-18 11:22 | SUR.PHASEI ---
timeout at 1122 for block completed with Dr. Bourgeois on left hip of patient to assist with pain
[2024-05-18] MEDS: 0.9 % SODIUM CHLORIDE 500 ML 500 ML 100 ML IV (11:55)
[2024-05-18] MEDS: ACETAMINOPHEN 325 MG TABLET PO (14:20)
--- NOTE | 2024-05-18 14:35 | REH.OT ---
OT: Patient seen in [facility] with spouse present and per nsg, had difficulty with pain management post op and was on 3LO2 after receiving additional pain meds and another block. He has since weaned to RA but and was sitting EOB with nursing when arrived. Patient was able to complete transfers from cart, recliner and w/c with min A x1 using 2ww. He needed cues to lock L knee for stability and had increased pain up to 7/10 with activity, ambulated with CGA x 10 feet and having more c/o lightheadedness and pain, which patient attributes to muscle spasms. Vitals taken during session initially when transferred to recliner BP 155/107, HR 62bpm, after 5 minutes rest BP 155/101, HR 66bpm. After ambulating 10 feet and 4 feete, BP 164/90, HR 62bpm after 3 feet ambulation from w/c to recliner. O2 sats on RA 96-98% with spot checks Nsg giving additional bolus of fluids. Patient not presenting safe to return home at current status with nsg contacting med surg for patient to transfer to floor to further address pain management. OT to follow up for additional visit during stay to aid in safe d/c plan. Anticipating will progress to return home with spouse assist once pain managed.
--- NOTE | 2024-05-18 19:03 | PC.NURSE ---
Presented to the floor after failed LTH fail for dizziness, and pain. VSS on RA upon arrival and pain is well managed at a 06/24. Dressing is CDI. Tolerated dinner with no issues and is asleep in the chair. SBA w/ GB and RW. Call light within reach, and ice pack to L hip. Kaitlin GRIGSBY BSN
--- NOTE | 2024-05-18 19:39 | PM.IMCN1 ---
Date of Consult Consult date: 05/18/24 Primary Care Provider: Not a Local Provider Consult Narrative Narrative: HOSPITALIST CONSULT Procedure: Left total hip arthroplasty-anterior approach SURGEON: Dc Armstrong MD. ANESTHESIA: General endotracheal anesthetic EBL: 500 mL COMPLICATIONS: None evident The hospital medicine team was asked by the orthopedic surgery team to manage the patient's hypertension. There have been no perioperative complications. I have updated and reviewed the active medical problems, past medical history, past surgical history, social history, allergies and medications in our electronic EMR. This includes a cross reference to care everywhere in [facility] and with [facility] databases. PHYSICAL EXAM: CODE STATUS: FULL CODE CONSTITUTIONAL: Conversive, good historian. A/O. Knows setting and context. VITAL SIGNS: see record. HEENT: Normocephalic, atraumatic. PERRL, EOMI, conjunctivae pink, no scleral icterus. Ears and nose externally normal. Pharynx normal. NECK: No JVD. No carotid bruit, no thyromegaly, no adenopathy. CHEST: Clear to auscultation bilaterally HEART: S1 and S2 normal. ABDOMEN: Flat, soft, nontender. Normal bowel sounds. Moderately obese. EXTREMITIES: No edema. MUSCULOSKELETAL: Surgical dressing intact and dry. NEURO: Cranial nerves intact. Mentation normal. Normal affect. SKIN: No rashes, petechiae, concerning changes PSYCHIATRIC: Mentation normal. INVESTIGATIONS: EMR Reviewed; Pre-OP Reviewed DISPOSITION: DVT: Agree with Ortho team decision GI: PO intake [facility], [facility] Medical History (Updated 05/18/24 @ 20:17 by Nellie Trinidad MD) Lumbar degenerative disc disease ?M51.36 - Other intervertebral disc degeneration, lumbar region (ICD-10) Lumbar spondylosis ?M47.816 - Spondylosis without myelopathy or radiculopathy, lumbar region (ICD-10) Hearing loss ?H91.90 - Unspecified hearing loss, unspecified ear (ICD-10) Cataract ?H26.9 - Unspecified cataract (ICD-10) Arthritis ?M19.90 - Unspecified osteoarthritis, unspecified site (ICD-10) GERD (gastroesophageal reflux disease) ?K21.9 - Gastro-esophageal reflux disease without esophagitis (ICD-10) Vitamin D deficiency ?E55.9 - Vitamin D deficiency, unspecified (ICD-10) Essential hypertension ?I10 - Essential (primary) hypertension (ICD-10) Sensorineural hearing loss ?H90.5 - Unspecified sensorineural hearing loss (ICD-10) Prostate cancer ?C61 - Malignant neoplasm of prostate (ICD-10) Hyperlipidemia ?E78.5 - Hyperlipidemia, unspecified (ICD-10) Osteoarthritis of glenohumeral joint ?M19.019 - Primary osteoarthritis, unspecified shoulder (ICD-10) Obstructive sleep apnea ?G47.33 - Obstructive sleep apnea (adult) (pediatric) (ICD-10) Migraine ?G43.909 - Migraine, unspecified, not intractable, without status migrainosus (ICD-10) Colon polyp ?K63.5 - Polyp of colon (ICD-10) Diabetes mellitus ?E11.9 - Type 2 diabetes mellitus without complications (ICD-10) Barretts esophagus ?K22.70 - Gramajo's esophagus without dysplasia (ICD-10) Surgical History (Updated 05/18/24 @ 19:53 by Nellie Trinidad MD) History of total left hip arthroplasty (05/18/24) ?Z96.642 - Presence of left artificial hip joint (ICD-10) History of arthroscopy of right knee (09/08/01) ?Z98.890 - Other specified postprocedural states (ICD-10) History of arthroscopy of left shoulder (10/13/01) ?Z98.890 - Other specified postprocedural states (ICD-10) History of arthroscopy of right shoulder (10/06/01) ?Z98.890 - Other specified postprocedural states (ICD-10) History of total replacement of right shoulder joint (11/22/18) ?Z96.611 - Presence of right artificial shoulder joint (ICD-10) History of carpal tunnel surgery of right wrist (09/23/18) ?Z98.890 - Other specified postprocedural states (ICD-10) History of total replacement of left shoulder joint (01/31/16) ?Z96.612 - Presence of left artificial shoulder joint (ICD-10) 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) ?Z96.652 - Presence of left artificial knee joint (ICD-10) History of total right knee replacement (08/24/13) ?Z96.651 - Presence of right artificial knee joint (ICD-10) Family History (Updated 02/03/24 @ 10:46 by Eun Andersen ~ BOX CAR WASHER, BOX CAR W[employer]ER) Mother Breast cancer Father Diabetes Brother Diabetes Myocardial infarction High blood pressure Stroke Son Myocardial infarction Social History (Updated 03/03/24 @ 09:22 by Patricia Valdes ~ LAT ATC) Smoking Status: Current some day smoker Do you use any of these nicotine containing products: None Nicotine containing products detail: marijuana How often do you have a drink containing alcohol: monthly or less How many standard drinks containing alcohol do you have on a typical day: 1 or 2 AUDIT-C Alcohol total score: 1 Non-prescribed substance use: marijuana (any form) Meds Home Medications and Allergies Home Medications ?Medication ?Instructions ?Recorded ?Confirmed ?Type amlodipine 10 mg tablet 10 mg PO DAILY 06/19/22 05/18/24 History losartan 100 mg tablet 100 mg PO DAILY 06/19/22 05/18/24 History atorvastatin 40 mg tablet 40 mg PO HS 05/18/24 05/18/24 History Allergies Allergy/AdvReac Type Severity Reaction Status Date / Time No Known Drug Allergies Allergy Verified 05/18/24 06:11 Exam Const: Vital Signs, click to edit/add: Vital Signs - 24 hr 05/18/24 06:41 05/18/24 07:15 05/18/24 07:20 Temperature 98.1 F Pulse Rate 55 L 53 L 52 L Respiratory Rate 20 20 20 Blood Pressure 171/102 H 191/90 H 164/88 H Pulse Oximetry 94 99 99 Oxygen Delivery Me thod Room Air Nasal Cannula Nasal Cannula Oxygen Flow Rate 3 3 05/18/24 07:25 05/18/24 10:40 05/18/24 10:45 Temperature 97.4 F L Pulse Rate 48 L 53 L 60 Respiratory Rate 20 20 22 Blood Pressure 177/93 H 148/61 H 172/89 H Pulse Oximetry 98 99 98 Oxygen Delivery Me thod Nasal Cannula Room Air Room Air Oxygen Flow Rate 3 05/18/24 10:50 05/18/24 11:00 05/18/24 11:05 Temperature Pulse Rate 59 L 58 L 53 L Respiratory Rate 20 18 20 Blood Pressure 150/90 H 156/92 H 153/59 H Pulse Oximetry 98 99 99 Oxygen Delivery Me thod Room Air Room Air Room Air Oxygen Flow Rate 05/18/24 11:10 05/18/24 11:15 05/18/24 11:20 Temperature Pulse Rate 59 L 55 L 58 L Respiratory Rate 18 20 18 Blood Pressure 169/96 H 165/86 H 172/89 H Pulse Oximetry 97 99 99 Oxygen Delivery Me thod Room Air Room Air Room Air Oxygen Flow Rate 05/18/24 11:25 05/18/24 11:30 05/18/24 11:35 Temperature Pulse Rate 62 57 L 53 L Respiratory Rate 18 18 18 Blood Pressure 152/88 H 168/102 H 160/100 H Pulse Oximetry 100 100 100 Oxygen Delivery Me thod Room Air Room Air Room Air Oxygen Flow Rate 05/18/24 11:40 05/18/24 11:45 05/18/24 12:00 Temperature 97.6 F 98.1 F Pulse Rate 55 L 54 L 57 L Respiratory Rate 18 16 16 Blood Pressure 138/92 H 134/84 140/85 H Pulse Oximetry 98 94 99 Oxygen Delivery Me thod Room Air Room Air Nasal Cannula Oxygen Flow Rate 2 05/18/24 12:15 05/18/24 12:30 05/18/24 12:45 Temperature 97.7 F Pulse Rate 53 L 56 L 57 L Respiratory Rate 16 16 16 Blood Pressure 137/93 H 139/81 135/85 Pulse Oximetry 98 99 100 Oxygen Delivery Me thod Nasal Cannula Nasal Cannula Nasal Cannula Oxygen Flow Rate 2 3 3 05/18/24 13:00 05/18/24 13:30 05/18/24 14:00 Temperature 97.7 F Pulse Rate 60 54 L 67 Respiratory Rate 16 20 20 Blood Pressure 146/87 H 166/89 H 155/101 H Pulse Oximetry 100 97 97 Oxygen Delivery Me thod Nasal Cannula Room Air Room Air Oxygen Flow Rate 3 0 05/18/24 14:25 05/18/24 15:30 05/18/24 16:09 Temperature 98.3 F 98.0 F Pulse Rate 57 L 58 L Respiratory Rate 20 18 18 Blood Pressure 164/90 H 149/93 H Pulse Oximetry 97 96 97 Oxygen Delivery Me thod Room Air Room Air Oxygen Flow Rate 0 05/18/24 18:30 Temperature 98.3 F Pulse Rate 67 Respiratory Rate 18 Blood Pressure 138/88 Pulse Oximetry 96 Oxygen Delivery Me thod Room Air Oxygen Flow Rate Assessment and Plan Assessment and plan (1) History of total left hip arthroplasty: Problem comment: Left total hip arthroplasty-anterior approach (05/18/24, Dr. Armstrong) Status: Acute Assessment and Plan: Hospital medicine team is happy to follow the patient through to discharge. We are expecting a routine postoperative course. I have reconciled his medications, completed our part of the discharge. -I will hold his antihypertensives as indicated per our practice standard -I will check his blood sugar as he is a type 2 diabetic, diet controlled -will spot check his oxygen sats as he is untreated for his obstructive sleep apnea (2) Diabetes mellitus: Problem comment: Type 2; A1C 02/05 6.8 diet controlled Status: Acute (3) Obstructive sleep apnea: Problem comment: no CPAP Status: Acute (4) Essential hypertension: Problem comment: amlodipine, losartan Status: Acute (5) Hearing loss: Status: Acute (6) Tetrahydrocannabinol (THC) dependence: Problem comment: nightly edibles helps him sleep Status: Acute
[2024-05-18] MEDS: SENNOSIDES 1 TAB TABLET 2 TAB PO (21:11)
[2024-05-18] MEDS: ATORVASTATIN CALCIUM 40 MG TABLET PO (21:11)
[2024-05-19] MEDS: CEFAZOLIN 2 GM in 0.9 % SODIUM CHLORIDE Mini-bag 100 ML IVPB (00:08)
[2024-05-19] MEDS: BACLOFEN 10 MG TABLET 5 MG PO ×2 (00:08→07:55)
[2024-05-19] MEDS: OXYCODONE 5 MG TABLET PO ×6 (00:10→10:24)
[2024-05-19] MEDS: HYDROmorphone 0.5 mg/0.5 ml inj IVP ×2 (01:34→04:08)
[2024-05-19] MEDS: ACETAMINOPHEN 500 MG TABLET 1000 MG PO ×2 (01:35→07:55)
[2024-05-19] MEDS: hydrOXYzine pamoate 25 MG CAPSULE PO ×3 (01:47→10:24)
[2024-05-19 03:00] VITALS: BP 146/89; PULSE 77; RESP 18; TEMP 37.4; O2SAT 97
[2024-05-19] MEDS: LORazepam 0.5 MG TABLET PO (04:08)
--- NOTE | 2024-05-19 06:31 | PC.NURSE ---
Pt alert, oriented and vitally stable. Pt pain at start of shift was rated 3-4/10, pt stated this was tolerable. Around midnight pt stated an increase of pain, rated 5/10, prn oxy given. Along with this, pt had stated muscle spasms throughout affected leg, prn baclofen given. Pt stated some improvement until 0145 when pain was rated a 7/10 and the muscle spasms returned. Prn dilaudid was given along with oxy and hydroxyzine. Pt has ice to op site, though states get cold easily, warm blankets provided. Around 0330 pt stated 8/10 pain and overall being uncomfortable. Pt moved to the chair, prn dilaudid, oxy and Ativan given. Pt stated improvement. Pt moves via SBA and tolerates well, though does state mild dizziness with pain flare ups. Pt up in chair, call light within reach. ?
[2024-05-19 06:34] LABS: Basophils Absolute Auto 0.01 K/uL (0.00-0.30); Basophils Percent Auto 0.1 % (0.0-3.0); Hematocrit 39.2 % (37.0-53.0); Hemoglobin* 13.1 gm/dL (13.5-17.5); Immature Granulocytes Abs Auto 0.09 K/uL (0.00-0.30); Immature Granulocytes Pct Auto 0.9 %; Lymphocytes Percent Auto 16.2 % (20-44); Mean Corpuscular HGB Conc 33 gm/dL (32-36); Mean Corpuscular Hemoglobin 31 pg (26-34); Mean Corpuscular Volume 91 fL (80-100); Monocytes Percent Auto 11.4 % (0.0-11.0); Neutrophils Absolute Auto 6.99 K/uL (1.7-7.0); Neutrophils Percent Auto 71.4 % (42.0-72.0); Platelet Count* 179 K/uL (140-440); RDW Coefficient of Variation % 14.5 % (11.5-15.5); Red Blood Count 4.29 m/uL (4.30-5.90)
[2024-05-19 06:36] LABS: Slide Review Reflex No
[2024-05-19 06:49] LABS: Chloride* 104 mmol/L (96-114); Sodium* 136 mmol/L (135-149)
[2024-05-19 06:52] LABS: Anion Gap 6 mEq/L (7-15); Blood Urea Nitrogen* 14 mg/dL (7-30); Calcium* 8.7 mg/dL (8.4-10.6); Carbon Dioxide* 26 mmol/L (20-32); Creatinine* 0.8 mg/dL (0.5-1.5); Est. Creatinine Clearance* 58.08; Estimated Glomerular Filt Rate 94 ml/min; Glucose* 142 mg/dL (60-115)
[2024-05-19 07:00] VITALS: BP 158/86; PULSE 76; RESP 20; TEMP 36.8; O2SAT 100
[2024-05-19] MEDS: LOSARTAN POTASSIUM 50 MG TABLET 100 MG PO (07:56)
[2024-05-19] MEDS: RIVAROXABAN 10 MG TABLET PO (07:56)
[2024-05-19] MEDS: SENNOSIDES 1 TAB TABLET 2 TAB PO (08:03)
--- NOTE | 2024-05-19 11:18 | PC.SOCIAL ---
Discharge planning: bilingual patient support caseworker met with pt to discuss discharge planning. Pt shared that he hadn't planned on spending the night in the hospital, but his pain was bad after surgery and it needed to be managed before he could discharge home. Pt is feeling much better today and is ready to go home. Pt's will be transporting him home. Social work to follow-up as needed.
--- NOTE | 2024-05-19 12:28 | PC.NURSE ---
Discharge: The patient discharged home with his , drowsy, but aware. Pain is controlled while the patient is at rest. When the patient starts to move he starts to hold his breath and brace for the worst. Educated him on taking deep breathes. Ice packs were sent with him as well as all belongings. S/S to follow up on were discussed as well with the patient and his . All paperwork was reviewed and given to the patient. Kaitlin GRIGSBY BSN
== END 2024-05-19 11:55 | disposition home or self-care (01) ==
LOC: OR 12:58 → MEDSURG 15:58
PROVIDERS: Family Medicine; Visit Provider Orthopaedic Surgery Sports Medicine
PROC: (CPT 27130; principal; 2024-05-18 07:30)
DX: M16.12 Unilateral primary osteoarthritis, left hip (principal); G89.18 Other acute postprocedural pain; Z85.46 Personal history of malignant neoplasm of prostate; I10 Essential (primary) hypertension; M51.369 Other intervertebral disc degeneration, lumbar region without mention of lumbar back pain or lower extremity pain; M47.816 Spondylosis without myelopathy or radiculopathy, lumbar region; K21.9 Gastro-esophageal reflux disease without esophagitis; G47.33 Obstructive sleep apnea (adult) (pediatric); E11.9 Type 2 diabetes mellitus without complications; F12.20 Cannabis dependence, uncomplicated
CPT/HCPCS: 27130; 01214; 36415; 64450; 73501; 76000; 76942; 80048; 82962; 85025; 86850; 86900; 86901; 88304; 88311; 97110; 97116; 97161; 97165; 97530; 97535; 99100; A9270; C1776; J0330; J0690; J1171; J2175; J2250; J2704; J2710; J2795; J3010; J3490; J7030; J7120